=== PATIENT | female | born 1990 | race Caucasian/White ===

== ENCOUNTER 2016-09-04 09:17 | Outpatient (CLI) | payer MEDICAID ==
[2016-09-04 10:11] LABS: APPEARANCE,URINE CLEAR; BILIRUBIN,URINE NEGATIVE (NEGATIVE); GLUCOSE, URINE NEGATIVE (NEGATIVE); KETONES,URINE NEGATIVE (NEGATIVE); LEUKOCYTE ESTERASE,URINE NEGATIVE (NEGATIVE); NITRITE,URINE NEGATIVE (NEGATIVE); PROTEIN,URINE NEGATIVE (NEGATIVE); URINE SPECIFIC GRAVITY 1.005; UROBILINOGEN,URINE NEGATIVE mg/dL (<2.0)
[2016-09-04 10:29] LABS: URINE BARBITURATES SCREEN NEGATIVE; URINE METHADONE SCREEN NEGATIVE; URINE OPIATES LOW NEGATIVE; URINE PHENCYCLIDINE SCREEN NEGATIVE
== END 2016-09-04 10:38 | disposition home or self-care (01) ==
LOC: LC 09:17
PROVIDERS: ATTEND Obstetrics & Gynecology
PROC: 4A1HXCZ Monitoring of Products of Conception, Cardiac Rate, External Approach (ICD-10-PCS; principal; 2016-09-04)
DX: O12.02 Gestational edema, second trimester (principal); Z3A.26 26 weeks gestation of pregnancy
CPT/HCPCS: 80307; 81001

== ENCOUNTER 2016-09-12 22:35 | Observation (INO) | payer MEDICAID ==
[2016-09-12 23:10] LABS: APPEARANCE,URINE SLIGHTLY-CLOUDY; BILIRUBIN,URINE NEGATIVE (NEGATIVE); GLUCOSE, URINE NEGATIVE (NEGATIVE); KETONES,URINE NEGATIVE (NEGATIVE); LEUKOCYTE ESTERASE,URINE NEGATIVE (NEGATIVE); NITRITE,URINE NEGATIVE (NEGATIVE); PROTEIN,URINE >=500 mg/dL (NEGATIVE); URINE SPECIFIC GRAVITY 1.009; UROBILINOGEN,URINE NEGATIVE mg/dL (<2.0)
[2016-09-12 23:37] LABS: URINE METHADONE SCREEN NEGATIVE; URINE OPIATES LOW NEGATIVE; URINE PHENCYCLIDINE SCREEN NEGATIVE
[2016-09-13] LABS: ABSOLUTE EOSINOPHILS # (AUTO) 0.1 10^3/uL (0.0-0.6); ABSOLUTE LYMPHOCYTES (AUTO) 1.7 10^3/uL (0.5-4.7); ABSOLUTE MONOCYTES (AUTO) 0.7 10^3/uL (0.1-1.4); ABSOLUTE NEUT (AUTO) 6.2 10^3/uL (1.7-8.2); BASOPHILS % (AUTO) 0.3 % (0-2); EOSINOPHILS % (AUTO) 0.9 % (0-6); HEMATOCRIT 37.2 % (36.0-47.0); HEMOGLOBIN 12.9 g/dL (12.0-15.5); HGB HCT DIFFERENCE 1.5; LYMPHOCYTES % (AUTO) 19.2 % (13-45); MEAN CORPUSCULAR HEMOGLOBIN 31.7 pg (27.0-33.4); MEAN CORPUSCULAR HGB CONC 34.7 g/dL (32.0-36.0); MEAN CORPUSCULAR VOLUME 91 fl (80-97); MONOCYTES % (AUTO) 8.2 % (3-13); RED BLOOD COUNT 4.08 10^6/uL (3.72-5.28); SEGMENTED NEUTROPHILS % (AUTO) 71.4 % (42-78); WHITE BLOOD COUNT 8.7 10^3/uL (4.0-10.5)
[2016-09-13 00:07] LABS: URINE BARBITURATES SCREEN NEGATIVE
[2016-09-13 00:30] LABS: ALANINE AMINOTRANSFERASE 31 U/L (9-52); ALKALINE PHOSPHATASE 69 U/L (38-126); ANION GAP 7 (5-19); ASPARTATE AMINO TRANSFERASE 23 U/L (14-36); BILIRUBIN,DIRECT 0.2 mg/dL (0.0-0.4); BILIRUBIN,TOTAL 0.3 mg/dL (0.2-1.3); BLOOD UREA NITROGEN 12 mg/dL (7-20); CALCIUM 8.5 mg/dL (8.4-10.2); CARBON DIOXIDE 22 mmol/L (22-30); CHLORIDE 105 mmol/L (98-107); CREATININE RESULT 0.61 mg/dL (0.52-1.25); GLUCOSE 75 mg/dL (75-110); LDH 302 U/L (313-618); POTASSIUM 4.1 mmol/L (3.6-5.0); SODIUM 134.1 mmol/L (137-145); TOTAL PROTEIN 5.7 g/dL (6.3-8.2); URIC ACID 6.4 mg/dL (2.5-6.2)
--- NOTE | 2016-09-13 01:52 | RADIOLOGY REPORT (SQ) ---
EXAM DESCRIPTION: U/S OB LIMITED COMPLETED DATE/TIME: 09/13/2016 1:03 am REASON FOR STUDY: EFW,MAVIS,presentation . COMPARISON: None. TECHNIQUE: Limited transabdominal grayscale ultrasound for evaluation of specific requested obstetri luis a parameters. LIMITATIONS: None. FINDINGS: CERVICAL LENGTH: Not applicable. Greater than 20 weeks. Need transvaginal study if indicat ed. MAVIS: 10.0 cm. FHR: 136 beats per minute. PRESENTATION: Vertex. EGA: 26 weeks 0 days JENNIFER: 12/20/2016 EFW: 780 +/- 115 g. IMPRESSION: LIMITED OBSTETRICAL ULTRASOUND WITH MEASURED PARAMETERS DELINEATED ABOVE. Trimester of : Second trimester - 13 weeks 1 day to 27 weeks 6 days. TECHNICAL DOCUMENTATION: JOB ID: [id number] [employer]- All Rights Reserved
[2016-09-13 02:30] LABS: URINE CREATININE 65.1 mg/dL (16-327); URINE PROTEIN 1033.7 mg/dL (<12)
[2016-09-13 06:04] LABS: ABSOLUTE EOSINOPHILS # (AUTO) 0.1 10^3/uL (0.0-0.6); ABSOLUTE LYMPHOCYTES (AUTO) 1.5 10^3/uL (0.5-4.7); ABSOLUTE MONOCYTES (AUTO) 0.5 10^3/uL (0.1-1.4); ABSOLUTE NEUT (AUTO) 4.9 10^3/uL (1.7-8.2); BASOPHILS % (AUTO) 0.3 % (0-2); EOSINOPHILS % (AUTO) 1.2 % (0-6); HEMOGLOBIN 11.8 g/dL (12.0-15.5); HGB HCT DIFFERENCE 1.4; LYMPHOCYTES % (AUTO) 20.9 % (13-45); MEAN CORPUSCULAR HEMOGLOBIN 31.6 pg (27.0-33.4); MEAN CORPUSCULAR HGB CONC 34.6 g/dL (32.0-36.0); MEAN CORPUSCULAR VOLUME 91 fl (80-97); MONOCYTES % (AUTO) 7.5 % (3-13); RED BLOOD COUNT 3.72 10^6/uL (3.72-5.28); RED CELL DISTRIBUTION WIDTH 13.6 % (11.5-14.0); SEGMENTED NEUTROPHILS % (AUTO) 70.1 % (42-78)
[2016-09-13 06:14] LABS: ALANINE AMINOTRANSFERASE 25 U/L (9-52); ALBUMIN 2.5 g/dL (3.5-5.0); ALKALINE PHOSPHATASE 59 U/L (38-126); ANION GAP 6 (5-19); ASPARTATE AMINO TRANSFERASE 19 U/L (14-36); BILIRUBIN,DIRECT 0.2 mg/dL (0.0-0.4); BILIRUBIN,TOTAL 0.4 mg/dL (0.2-1.3); BLOOD UREA NITROGEN 11 mg/dL (7-20); CALCIUM 7.8 mg/dL (8.4-10.2); CARBON DIOXIDE 22 mmol/L (22-30); CHLORIDE 107 mmol/L (98-107); CREATININE RESULT 0.58 mg/dL (0.52-1.25); GLUCOSE 71 mg/dL (75-110); LDH 277 U/L (313-618); SODIUM 134.7 mmol/L (137-145); TOTAL PROTEIN 4.8 g/dL (6.3-8.2); URIC ACID 6.6 mg/dL (2.5-6.2)
[2016-09-13] MEDS ORDERED: ACETAMINOPHEN 325 MG TABLET ONE (07:43)
[2016-09-13] MEDS ORDERED: BETAMET ACET/BETAMET NA INJ 6 MG/1 ML ONE (08:59)
[2016-09-13] MEDS ORDERED: MAGNESIUM SULFATE 4 GM/100 ML RTUPB IV ONE (09:37)
--- NOTE | 2016-09-13 12:01 | PDOC TRANSFER SUMMARY ---
General Admission Date/PCP: 09/12/16 23:51 DANELLE EUCEDA MD Admission Date: 09/13/16 Transfer Date: 09/13/16 Accepting Facility: [facility] Accepting Physician: Dr. Araiza Resuscitation Status: Full Code - Transfer Diagnosis (1) Pre-eclampsia affecting , antepartum Is this a current diagnosis for this admission?: Yes (2) Third trimester at less than 36 weeks Is this a current diagnosis for this admission?: Yes - Transfer Medications Home Medications: Prenat Vit Comb.10/Iron/FA/Dha [Vitafol-Ob+Dha Combo Pack] 1 tab PO DAILY Transfer Medications: Magnesium Sulfate 2 gms/hour Betamethasone 12 mg IM given @ 949 am to initiate ACS protocol - Allergies Allergies/Adverse Reactions: No Known Allergies Allergy (Verified 09/04/16 09:43) Hospital Course Hospital Course: presented to ER for c/o intermittent headache and occasional elevated blood pressures. Initially presented with normal pressures but a prot/creat ratio of 15.9. Pressures continued to worsen. Labs revealed suggestion of preE starting. As the night progressed, BPs elevated to 150s/90s. Uric acid returned elevated at 6.2 and plts decreased from 144 to 136. Decision to initiate ACS protocol and transfer to a tertiary facility for higher level of NICU care due to gestational age less than 32 weeks. Physical Exam General appearance: PRESENT: no acute distress, cooperative Eye exam: PRESENT: periorbital swelling Pulses: PRESENT: normal radial pulses GI/Abdominal exam: PRESENT: soft Extremities exam: PRESENT: pedal edema, +2 edema Neurological exam: PRESENT: other - DTRs +3 Results Laboratory Results: 09/13/16 05:23 09/13/16 05:23 09/12/16 09/12/16 09/12/16 22:45 23:51 23:51 WBC 8.7 RBC 4.08 Hgb 12.9 Hct 37.2 MCV 91 MCH 31.7 MCHC 34.7 RDW 13.0 Plt Count 147 L Seg Neutrophils % 71.4 Lymphocytes % 19.2 Monocytes % 8.2 Eosinophils % 0.9 Basophils % 0.3 Absolute Neutrophils 6.2 Absolute Lymphocytes 1.7 Absolute Monocytes 0.7 Absolute Eosinophils 0.1 Absolute Basophils 0.0 Sodium 134.1 L Potassium 4.1 Chloride 105 Carbon Dioxide 22 Anion Gap 7 BUN 12 Creatinine 0.61 Est GFR ( Amer) > 60 Est GFR (Non-Af Amer) > 60 Glucose 75 Uric Acid 6.4 H Calcium 8.5 Total Bilirubin 0.3 AST 23 ALT 31 Alkaline Phosphatase 69 Total Protein 5.7 L Albumin 3.0 L Urine Color YELLOW Urine Appearance SLIGHTLY-CLOUDY Urine pH 6.0 Ur Specific [place] 1.009 Urine Protein >=500 H Urine Glucose (UA) NEGATIVE Urine Ketones NEGATIVE Urine Blood NEGATIVE Urine Nitrite NEGATIVE Ur Leukocyte Esterase NEGATIVE Urine WBC (Auto) 1 Urine RBC (Auto) 1 09/13/16 09/13/16 05:23 05:23 WBC 7.0 RBC 3.72 Hgb 11.8 L Hct 34.0 L MCV 91 MCH 31.6 MCHC 34.6 RDW 13.6 Plt Count 138 L Seg Neutrophils % 70.1 Lymphocytes % 20.9 Monocytes % 7.5 Eosinophils % 1.2 Basophils % 0.3 Absolute Neutrophils 4.9 Absolute Lymphocytes 1.5 Absolute Monocytes 0.5 Absolute Eosinophils 0.1 Absolute Basophils 0.0 Sodium 134.7 L Potassium 4.0 Chloride 107 Carbon Dioxide 22 Anion Gap 6 BUN 11 Creatinine 0.58 Est GFR ( Amer) > 60 Est GFR (Non-Af Amer) > 60 Glucose 71 L Uric Acid 6.6 H Calcium 7.8 L Total Bilirubin 0.4 AST 19 ALT 25 Alkaline Phosphatase 59 Total Protein 4.8 L Albumin 2.5 L Urine Color Urine Appearance Urine pH Ur Specific [place] Urine Protein Urine Glucose (UA) Urine Ketones Urine Blood Urine Nitrite Ur Leukocyte Esterase Urine WBC (Auto) Urine RBC (Auto) Impressions: Obstetrics Ultrasound 09/13/16 00:00 IMPRESSION: LIMITED OBSTETRICAL ULTRASOUND WITH MEASURED PARAMETERS DELINEATED ABOVE. Trimester of : Second trimester - 13 weeks 1 day to 27 weeks 6 days. Plan Discharge Plan: transfer to [facility] as above. Time Spent: Greater than 30 Minutes
== END 2016-09-13 11:46 | disposition short-term general hospital (02) ==
LOC: LC 22:35 → LR 23:51
PROVIDERS: ADMIT Student in an Organized Health Care Education/Training Program; ATTEND Student in an Organized Health Care Education/Training Program
PROC: 3E0233Z Introduction of Anti-inflammatory into Muscle, Percutaneous Approach (ICD-10-PCS; principal; 2016-09-13)
DX: O14.92 Unspecified pre-eclampsia, second trimester (principal); O60.02 Preterm labor without delivery, second trimester; O99.352 Diseases of the nervous system complicating pregnancy, second trimester; R56.9 Unspecified convulsions; Z3A.28 28 weeks gestation of pregnancy
CPT/HCPCS: 96372; 36415 ×2; 83615 ×2; 84156; 84550 ×2; 82570; 85025 ×2; 80053 ×2; 81001; 80307; 76815; G0378; G0379; J3475; J3490; J0702